=== PATIENT | male | born 1980 | race Asian ===

== ENCOUNTER 2024-09-06 22:51 | Emergency (ER) | payer OTHER ==
[2024-09-06 23:11] VITALS: BP 115/67; PULSE 60; RESP 18; TEMP 98.6; BMI 27.3
[2024-09-06] MEDS ORDERED: FAMOTIDINE 20 MG/50 ML IVPB 20 MG/50 ML MG IVPB ONE (23:48)
[2024-09-07] MEDS ORDERED: MAG HYDROX/AL HYDROX/SIMETH 30 ML UNIT-DOSE CUP ONE (00:06)
[2024-09-07] MEDS ORDERED: ACETAMINOPHEN INJECTION 100 ML ONE (00:06)
[2024-09-07] MEDS ORDERED: ONDANSETRON 4 MG/2 ML VIAL ONE (00:06)
[2024-09-07] MEDS ORDERED: KETOROLAC TROMETHAMINE 30 MG/1 ML VIAL ONE (00:07)
[2024-09-07] MEDS: ONDANSETRON 4 MG/2 ML VIAL IVPB ONE (00:18)
[2024-09-07] MEDS: MAG HYDROX/AL HYDROX/SIMETH 30 ML UNIT-DOSE CUP PO ONE (00:19)
[2024-09-07] MEDS: KETOROLAC TROMETHAMINE 30 MG/1 ML VIAL IVPUSH ONE (00:19)
[2024-09-07] MEDS: SODIUM CHLORIDE 0.9% 500 ML INFUS.BAG IV ONE (00:19)
[2024-09-07 00:25] LABS: ABSOLUTE IMMATURE GRANULOCYTES 0.01 x10^3/uL (0.0-0.031); BASOPHILS # 0.02 x10^3/uL (0.01-0.08); EOSINOPHIL % 1.1 % (0.8-7.0); EOSINOPHILS # 0.09 x10^3/uL (0.04-0.54); HEMOGLOBIN 13.5 g/dL (13.7-17.5); MCHC 32.9 g/dl (32.3-36.5); MEAN CELL VOLUME 80.1 fl (79.0-92.2); MEAN PLT VOLUME 9.4 fl (9.4-12.4); MONOCYTE # 0.51 x10^3/uL (0.30-0.82); MONOCYTE % 6.3 % (5.3-12.2); PLATELET COUNT 317 x10^3/uL (163-337); RDW 14.6 % (12.1-15.9)
[2024-09-07 00:45] LABS: POTASSIUM 3.8 mmol/L (3.5-5.1)
[2024-09-07 00:47] LABS: ALBUMIN 3.9 g/dl (3.4-5.0); CALCIUM 9.7 mg/dL (8.5-10.1)
[2024-09-07 00:48] LABS: BLOOD UREA NITROGEN 10.8 mg/dL (7-18)
[2024-09-07 00:52] LABS: BILIRUBIN,TOTAL 0.3 mg/dL (0.2-1); TOT PROT 7.2 g/dl (6.4-8.2)
[2024-09-07] MEDS ORDERED: PSEUDOEPHEDRINE HCL 30 MG TABLET PO ONE (01:25)
== END 2024-09-07 01:36 | disposition home or self-care (01) ==
LOC: JER 22:51
PROC: 3E033GC Introduction of Other Therapeutic Substance into Peripheral Vein, Percutaneous Approach (ICD-10-PCS; principal; 2024-09-06)
DX: R42 Dizziness and giddiness (principal); R11.2 Nausea with vomiting, unspecified; R53.1 Weakness; R10.84 Generalized abdominal pain; R51.9 Headache, unspecified; R19.7 Diarrhea, unspecified
CPT/HCPCS: 0241U-QW; 36415; 80053; 84484; 85025; 99284-25